=== PATIENT | male | born 2000 | race Caucasian/White ===

== ENCOUNTER 2020-03-15 02:23 | Emergency (ER) | payer OTHER ==
--- NOTE | 2020-03-15 02:26 | PDOC ---
History of Present Illness - General Chief Complaint: Injury Stated Complaint: RT FOOT INJURY Time Seen by Provider: 03/15/20 02:24 - History of Present Illness Initial Comments: This otherwise healthy 20-year-old male presents with increasing pain in right ankle/foot that had been injured 1 week ago. Patient states that 7 days prior to presentation, he scraped and bruised his right ankle and foot against a curb. Patient cannot recall the details of the injury (he was intoxicated at the time) but he was evaluated at [facility] for this ankle injury and a head injury after a fall the same night. According to the patient's father, x-ray of the ankle and foot were performed at the time of evaluation at [facility] and reportedly were normal. Patient sustained skin abrasion injuries of the mid dorsum of the R foot and dorsal surface of the R ankle. The patient was seen by his PCP, ([place]), on Wednesday, March 11. At that time the wounds were dressed and patient was instructed on daily wound care. According to the patient, pain in the area progressively improved until tonight when he had worsening pain suddenly especially in the area around the ankle wound. Although he has become more active and admits walking extensively in the last 24 hours, there was no new injury to the area. He denies fever/chills. He has not seen any lymphangitic streaking or significant proximal swelling in the lower leg. The patient states he had one previous minor infection of a wound but generally heals very well. On no daily medications No known allergies Rarely smokes tobacco/occasionally smokes marijuana/no other recreational drug use Denies daily alcohol use Past History - Medical History Allergies/Adverse Reactions: Allergies Allergy/AdvReac Type Severity Reaction Status Date / Time No Known Allergies Allergy Unverified 03/15/20 02:27 Home Medications: Ambulatory Orders Amox-Tr/K Cl [Augmentin - 875Mg Tablet] 1 tab PO BID #14 tablet 03/15/20 Review of Systems - Review of Systems Able to Perform ROS?: Yes Comments:: 12 point review of systems is negative except for what is noted in the history of present illness *Physical Exam - Physical Exam GENERAL: Young adult male, alert and oriented x3, in no acute distress HEAD: Normal with no signs of trauma. EYES: PERRLA, EOMI, sclera anicteric, conjunctiva mildly erythematous bilaterally. ENT: Ears normal, nares patent, oropharynx clear without exudates. Dry mucous membranes. NECK: Normal range of motion, supple without lymphadenopathy, JVD, or masses. LUNGS: Breath sounds equal, clear to auscultation bilaterally. No wheezes, and no crackles. HEART:Regular rate and rhythm, normal S1 and S2 without murmur, rub or gallop. ABDOMEN:.normal bowel sounds No guarding,tenderness or rebound.No masses No distention. EXTREMITIES: Right lower extremity4 cm x 2.5 cm healing abrasion anterior aspect of ankle with mild surrounding 1 cm erythema/edema Area is moderately tender to palpation; no fluctuance; no purulent discharge. Mild pain in the area of wound with active and passive dorsiflexion of the toes No lymphangitic streaking noted 2.5 cm x 2.5 cm healing abrasion of mid dorsum of the foot with 1 to 2 cm surrounding of erythema but no tenderness Half centimeter healing abrasions at the dorsal surfaces of MTP joints; no surrounding erythema/tenderness Remainder the extremity exam is normal except for faint, erythematous rash of anterior surface of left leg (poison ephraim dermatitis) NEUROLOGICAL: Cranial nerves II through XII grossly intact. Normal speech. No focal neurological deficits . Medical Decision Making - Medical Decision Making As noted above, this 20-year-old male presents with increasing pain in the area of soft tissue injury right anterior ankle/right foot, sustained 1 week ago. No new trauma noted. Exam as noted above. Although the patient has been weightbearing without significant pain in the area of the injury and previous x-rays of the area were reportedly negative for fracture/dislocation, repeat imaging warranted in light of increased discomfort in the area. Right ankle/right foot x-ray performed. Preliminary interpretationno evidence of fracture or dislocation in ankle or foot. No foreign body noted In light of edema, tenderness and mild pain with movement of the foot, clinical presentation most consistent with cellulitis, especially at the more proximal wound. Although there is some pain with dorsiflexion of the toes (both active and passive), the discomfort is mild and there is no lymphangitic streaking or fever. Empiric therapy with Augmentin 875/125 twice a day for 1 week will be started. First dose will be given here in the emergency room. The patient will continue dressing changes daily as he had been previously instructed. He should return to the emergency room immediately if there is increase in pain, swelling or redness. Also, if he sees any red streaking coming from the area around the wound, he should return. Otherwise, he should follow-up with his general medical doctor within the next 4 to 5 days. Discharge - Discharge Information Problems reviewed: Yes Clinical Impression/Diagnosis: Cellulitis of right ankle Condition: Stable Disposition: HOME - Additional Discharge Information Prescriptions: Amox-Tr/K Cl [Augmentin - 875Mg Tablet] 1 tab PO BID #14 tablet - Follow up/Referral - Patient Discharge Instructions Patient Printed Discharge Instructions: Cellulitis Additional Instructions: Augmentin 875/125 twice a day for 1 weektake with a meal Continue dressing changes as previously Elevate right lower leg as much as possible Avoid strenuous activity over the next few days Follow-up with your doctor within the next 4 to 5 days Return to ER if you notice increasing redness/pain/swelling around wound or if you develop red streaking/fever - Post Discharge Activity
[2020-03-15 02:32] VITALS: BP 125/67; PULSE 65; TEMP 98; BMI 24.3
[2020-03-15] MEDS ORDERED: AMOX TR/POT CLAV 875MG/125MG TABLETS (FP) PO ONE (03:25)
[2020-03-15] MEDS ORDERED: AMOX TR/POT CLAV 875MG/125MG TABLETS (FP) ONE (03:27)
== END 2020-03-15 03:42 | disposition home or self-care (01) ==
LOC: FER 02:23
DX: L03.115 Cellulitis of right lower limb (principal)
CPT/HCPCS: 73610-TC-RT-FY; 73630-TC-RT-FY; 99283-25